=== PATIENT | male | born 1965 | race Caucasian/White ===

== ENCOUNTER 2022-08-20 02:08 | Emergency (ER) | payer OTHER, SELFPAY ==
[2022-08-20 02:33] VITALS: BP 162/75; PULSE 83; RESP 20; TEMP 36.8; O2SAT 96; BMI 26.9
--- NOTE | 2022-08-20 03:02 | ED_ITS ---
HPI - General Adult General Chief complaint: Eye Problems Stated complaint: FLASH BAUER IN EYES Time Seen by Provider: 08/20/22 02:38 Source: patient Mode of arrival: Ambulatory Limitations: no limitations History of Present Illness HPI narrative: 57-year-old male who has never had eye surgeries. Does not wear contact lenses. Does wear corrective lenses for reading who is here for evaluation of bilateral eye irritation and discomfort. 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 He states the person actually doing the welding was wearing a mask. The patient was wearing eye protection but not a welding mask. He states he potentially look directly at the welding light but does not remember doing so although he does remember seeing espinoza. He does not feel like he has any foreign bodies in his eye. As the day went on he started to have irritation both of his eyes. This has happened to him several times in the past. He did put a cool washcloth over his eyes which did help his symptoms somewhat. Related Data Previous Rx's Medication Instructions Recorded imiquimod 5 % topical cream packet 5 gm TP 3 X WEEKLY #1 tube 09/10/11 (Aldara) Podofilox (CONDYLOX 0.5%) 3.5 ml TP Q DAY ##1 10/07/11 erythromycin 5 mg/gram (0.5 %) eye 0.5 inch EYE-BOTH TID #3.5 grams 08/20/22 ointment Allergies Allergy/AdvReac Type Severity Reaction Status Date / Time No Known Drug Allergies Allergy Verified 08/20/22 03:12 Review of Systems Constitutional Constitutional: Reports system reviewed and no additional complaints, except as documented Eyes Eyes: Reports system reviewed and no additional complaints, except as documented ENT Ears, Nose, Mouth, and Throat: Reports system reviewed and no additional compl aints, except as documented Integumentary/Breasts Skin/Breast: Reports system reviewed and no additional complaints, except as documented Patient History Medical History No known health problems (04/21/11) Social History Smoking Status: Never smoker Smoking Status: Never smoker alcohol intake frequency: holidays/special occasions only Substance Use Type: does not use Exam Initial Vital Signs Initial Vital Signs: Vital Signs Temperature 98.3 F 10/21/22 02:33 Pulse Rate 83 08/20/22 02:33 Respiratory Rate 20 08/20/22 02:33 Blood Pressure 162/75 H 08/20/22 02:33 Pulse Oximetry 96 08/20/22 02:33 Oxygen Delivery Method 08/20/22 02:33 Const General: cooperative, comfortable and well developed [facility] Head: normal to inspection and normocephalic Eyes General: Yes appearance normal, both eyes and all related structures Eyelids: eyelids normal Conjunctivae: conjunctival abnormality bilaterally conjunctival injection diffuse Sclera: sclerae normal Cornea: corneas normal and fluorescein used Pupils: PERRL EOM: EOM intact bilaterally Skin General: no rashes or lesions noted Neuro General: patient alert, patient awake, patient oriented x3 and moves all extremities Course Orders Ordered: Discontinued Medications Erythromycin (Erythromycin Ophth 1 Gm Oint) 1 applic EYE-BOTH NOW ONE Stop: 08/20/22 03:03 Last Admin: 08/20/22 03:07 Dose: 1 applic Documented By: SAE Fluorescein Sodium (Fluorescein 1 Mg Strip) 1 mg EYE-BOTH NOW ONE Stop: 08/20/22 02:39 Last Admin: 08/20/22 03:05 Dose: 1 mg Documented By: SAE Proparacaine HCl (Proparacaine 0.5% Ophth Sabrina) 1 drops EYE-LEFT NOW ONE Stop: 08/20/22 02:39 Last Admin: 08/20/22 03:05 Dose: 1 drop Documented By: SAE Vital Signs Vital signs: Vital Signs - 8 hr 08/20/22 02:33 Temperature 98.3 F Pulse Rate 83 Respiratory Rate 20 Blood Pressure 162/75 H Pulse Oximetry 96 Oxygen Delivery Method Room Air Medical Decision Making [facility] Narrative Medical decision making narrative: Patient had almost immediate relief with the proparacaine drops. Fluorescein was used. No foreign bodies noted. No ulcerations noted. No abrasions noted. His symptoms are bilateral. Low suspicion for infectious conjunctivitis. Given his history this is most likely related to the wellbeing like that he was around earlier today. Will place the patient on antibiotic ointment. He was given return precautions and follow-up instructions. He expressed understanding and agreement. Discharge Plan Departure Patient Disposition: Home Clinical Impression: Photokeratitis of both eyes Activity Restrictions/Additional Instructions: I do recommend that you use the antibiotic ointment as directed for the next 2-3 days or until your symptoms are healed. A prescription was sent to [facility]. Return to the emergency department for any new or worsening symptoms. Prescriptions: New erythromycin 5 mg/gram (0.5 %) ointment 0.5 inch EYE-BOTH TID Qty: 3.5 1RF No Action imiquimod [Aldara] 5 % cream in packet 5 gm TP 3 X WEEKLY Qty: 1 0RF Podofilox (CONDYLOX 0.5%) 3.5 ml TP Q DAY Qty: 1 0RF
[2022-08-20] MEDS: FLUORESCEIN 1 MG STRIP EYE-BOTH (03:05)
[2022-08-20] MEDS: PROPARACAINE 0.5% OPHTH SOL 1 DROPS EYE-LEFT (03:05)
[2022-08-20] MEDS: ERYTHROMYCIN OPHTH 1 GM OINT 1 APPLIC EYE-BOTH (03:07)
== END 2022-08-20 03:34 | disposition home or self-care (01) ==
PROVIDERS: Emergency Provider Emergency Medicine
DX: H16.133 Photokeratitis, bilateral (principal)
CPT/HCPCS: 99282

== ENCOUNTER → 2024-11-19 08:06 | Outpatient (CLI) | payer OTHER, SELFPAY | PROVIDERS: Visit Provider Physician Assistant Medical | DX: R30.0 Dysuria (principal) | CPT/HCPCS: 87086 ==

== ENCOUNTER 2024-11-19 08:59 | Emergency (ER) | payer OTHER, SELFPAY ==
[2024-11-19 09:13] VITALS: BP 139/84; PULSE 73; RESP 19; TEMP 36.5; O2SAT 98; BMI 27.2
[2024-11-19 09:39] LABS: Urine Volume 10mL (spun)
--- NOTE | 2024-11-19 09:42 | ED_ITS ---
HPI - Abdominal Pain General Chief Complaint: Abdominal Pain Stated Complaint: [facility]; Abd Pain, Blood In Urine, Poss Kidney Stone Time Seen by Provider: 11/19/24 09:22 Source: patient Mode of arrival: Ambulatory History of Present Illness HPI narrative: Patient is a 59-year-old male without significant past medical history presenting today with lower abdominal pain. He reports that he does drink water at night and sometimes drinks score is light during the daytime but he was unable to empty his bladder last night. He certainly had urge to go but could not get a single drop out. This morning he got a little drops out went [facility] he did urinate a small amount there but still was quite uncomfortable he did have some hematuria and was sent to the ED for further evaluation and possible kidney stone workup. While in the emergency department he actually empty his bladder completely. He reports feeling significantly better. He has no flank pain nausea vomiting overall feels back to his normal self. Related Data Previous Rx's Medication Instructions Recorded imiquimod 5 % topical cream packet 5 gm TP 3 X WEEKLY #1 tube 09/10/11 (Aldara) Podofilox (CONDYLOX 0.5%) 3.5 ml TP Q DAY ##1 10/07/11 erythromycin 5 mg/gram (0.5 %) eye 0.5 inch EYE-BOTH TID #3.5 grams 08/20/22 ointment Allergies Allergy/AdvReac Type Severity Reaction Status Date / Time No Known Drug Allergies Allergy Verified 08/20/22 03:12 Patient History Medical History No known health problems (04/21/11) Social History Smoking Status: Never smoker Smoking Status: Never smoker alcohol intake frequency: holidays/special occasions only Alcohol type: beer and hard liquor Exam Initial Vital Signs Initial Vital Signs: Vital Signs Temperature 97.7 F 11/19/24 09:13 Pulse Rate 73 11/19/24 09:13 Respiratory Rate 19 11/19/24 09:13 Blood Pressure 139/84 11/19/24 09:13 Pulse Oximetry 98 11/19/24 09:13 Oxygen Delivery Method Room Air 11/19/24 09:13 GENERAL: Well-appearing, well-nourished and in no acute distress. CARDIOVASCULAR: peripheral pulses in tact, cap refill <2 sec RESPIRATORY: No respiratory distress, speaks in full sentences without difficulty ABDOMEN: Soft, nontender, no guarding or rebound EXTREMITIES: Normal range of motion, no clubbing or edema. Neurovascularly intact NEUROLOGICAL: Cranial nerves II through XII grossly intact. Normal gait and speech. SKIN: Warm, dry, no petechiae, no rashes or lesions. Course Orders Ordered: ED Orders 11/19/24 09:20 Urine Microscopic Stat 11/19/24 09:27 Complete Blood Count AUTO DIFF Stat Comprehensive Metabolic Panel Stat Lipase Stat Vital Signs Vital signs: Vital Signs - 8 hr 11/19/24 09:13 Temperature 97.7 F Pulse Rate 73 Respiratory Rate 19 Blood Pressure 139/84 Pulse Oximetry 98 Oxygen Delivery Method Room Air MDM - Abdominal Pain Lab Data Labs: Lab Results 11/19/24 Range/Units 09:20 Urine RBC 10-30/hpf H (0-5/HPF) Urine WBC None seen (0-5/HPF) Ur Squamous Epith Cells 1-5 /hpf (0-5/HPF) Urine Bacteria None seen (None) Ur Culture Indicated? Cult not indicated Vol Urine Centrifuged 10ml (spun) Point of care testing: Urine Dip Bedside Urine Glucose Negative Bedside Urine Bilirubin - Negative Bedside Urine Ketone +/- 5 Urine Specific Wilmore 1.020 Bedside Urine Occult Blood +++ Bedside Urine pH 6.0 Bedside Urine Protein +/- 15 Bedside Urine Urobilinogen +/- 1mg Bedside Urine Nitrite - Negative Bedside Urine Leukocytes - Negative Esterase MDM Narrative Medical decision making narrative: Patient is a 59-year-old healthy male who presents today with inability to empty bladder last night and urinary retention. However he emptied his bladder completely here in the emergency department. Bedside ultrasound done by myself does not show a full bladder. In fact it does show a completely empty bladder. He has no pain no nausea no vomiting feels back to his normal. I have very low suspicion for kidney stone I suspect enlarged prostate and urinary retention which has self resolve this morning. I recommend follow-up with Urology at this time. No evidence of UTI today but he does have some mild hematuria. Discharge Plan Departure Patient Disposition: Home Clinical Impression: Acute urinary retention Instructions: DI for Urinary Retention in Men Activity Restrictions/Additional Instructions: *You have been diagnosed with urinary retention *What to do: At this time I do recommend that you follow-up with urology. Please be sure you are emptying your bladder. If it is ever you are unable to empty your bladder you are welcome to come back to the emergency department 23/05, we are available at all times *Continue to take medications as directed *Follow up with your primary care provider in 2-3 days or call [phone] *Return to ER if you should have inability to empty bladder back pain nausea vomiting or any new, worsening or concerning symptoms Prescriptions: No Action imiquimod [Aldara] 5 % cream in packet 5 gm TP 3 X WEEKLY Qty: 1 0RF Podofilox (CONDYLOX 0.5%) 3.5 ml TP Q DAY Qty: 1 0RF erythromycin 5 mg/gram (0.5 %) ointment 0.5 inch EYE-BOTH TID Qty: 3.5 1RF Referrals: Miscellaneous,Doctor, MD [Primary Care Provider] - Stand Alone Forms: Patient Portal/API/Survey
[2024-11-19 09:45] LABS: Bacteria Urine None Seen; Culture Indicated Urine Cult Not Indicated; RBC Urine 10-30/HPF (0-5/HPF); Squamous Epithelial Cell Urine 1-5 /HPF (0-5/HPF); WBC Urine None Seen (0-5/HPF)
[2024-11-19 09:51] VITALS: BP 133/78; PULSE 62; RESP 18; TEMP 36.7; O2SAT 99
== END 2024-11-19 09:52 | disposition home or self-care (01) ==
PROVIDERS: Emergency Provider Emergency Medicine
DX: R10.30 Lower abdominal pain, unspecified (principal); R33.9 Retention of urine, unspecified; R30.0 Dysuria
CPT/HCPCS: 81003; 81015; 87086; 99282